=== PATIENT | male | born 1980 | race Two or more races ===

== ENCOUNTER 2016-06-12 19:21 | Emergency (ER) | payer SELFPAY ==
[~2016-06-12] VITALS: Ht 160 cm; Wt 63.5 kg
[2016-06-12 19:31] VITALS: BP 157/107
[2016-06-12 20:01] LABS: Basophils # (auto) 0 uL; Basophils % (auto) 0.5 % (0.0-2.0); DEFINITIVE VIEW TRANSMISSION; Eosinophils # (auto) 0.2 uL; Hematocrit 45.2 % (41.0-53.0); Hemoglobin 14.7 g/dL (13.5-17.5); Lymphocytes # (auto) 2.4 uL; Mean Corpuscular Hemoglobin 26.2 pg (28.0-32.0); Mean Corpuscular Hgb Conc. 32.5 g/dL (32.0-36.0); Mean Corpuscular Volume 80.6 fL (80.0-100.0); Mean Platelet Volume 8.4 fL (7.4-10.4); Monocytes # (auto) 0.6 uL; Monocytes % (auto) 9.1 % (0.0-12.0); Neutrophils # (auto) 3.4 uL; Neutrophils % (auto) 50.4 % (37.0-80.0); Platelet Count (auto) 318 10^3/uL (140-450); White Blood Cell 6.6 10^3/uL (4.4-10.8)
[2016-06-12 20:23] LABS: Albumin 4.2 g/dL (3.4-5.0); Bilirubin, Total 0.2 mg/dL (0.2-1.0); Calcium 8.9 mg/dL (8.5-10.1); Potassium 4.5 mmol/L (3.5-5.1); Total Protein 8.5 g/dL (6.4-8.2)
== END 2016-06-13 02:09 | disposition left against medical advice (07) ==
LOC: ER 19:25
DX: R07.89 Other chest pain (principal); Z53.21 Procedure and treatment not carried out due to patient leaving prior to being seen by health care provider
CPT/HCPCS: 36415; 71010; 80053; 84484; 85025